=== PATIENT | female | born 1980 | race Caucasian/White ===

== ENCOUNTER → 2021-11-03 | Outpatient (CLI) | payer BC ==
[~2021-11-03] MED LIST: HYDROCODON-ACETAMINO; NO HOME MEDICATIONS; NORCO 325 MG-51 TAB PO; NORCO 325 MG-7.1 TAB PO
== END ==
LOC: COL.RAD 07:23
DX: K76.0 Fatty (change of) liver, not elsewhere classified (principal); Z86.59 Personal history of other mental and behavioral disorders